=== PATIENT | male | born 1965 | race Caucasian/White ===

== ENCOUNTER 2017-05-01 18:40 | Emergency (ER) | payer MEDICAID ==
[2017-05-01 18:55] VITALS: BP 116/74; PULSE 74; RESP 20; TEMP 98.2; O2SAT 99
[2017-05-01] MEDS ORDERED: Lidocaine Hydrochloride 5 ML INJ ONE (19:34)
[2017-05-01] MEDS ORDERED: Bacitracin 500 Units/gm Oint Foilpak UD ONE (19:34)
--- NOTE | 2017-05-01 20:19 | C.PDOC ---
History Of Present Illness 51 year old male presents to the ED for evaluation after he sustained a laceration to his right 2nd finger from a work machine earlier today. Patient denies any blunt trauma or extremity numbness/weakness at this time. Time Seen by Provider: 05/01/17 19:22 Chief Complaint (Nursing): Abnormal Skin Integrity History Per: Patient History/Exam Limitations: no limitations Onset/Duration Of Symptoms: Hrs Current Symptoms Are (Timing): Still Present Location Of Injury: Right: Hand (2nd finger ) Additional History Per: Patient Past Medical History Reviewed: Historical Data, Nursing Documentation, Vital Signs Vital Signs: Last Vital Signs Temp 98.2 F 05/01/17 18:53 Pulse 74 05/01/17 18:53 Resp 20 05/01/17 18:53 BP 116/74 05/01/17 18:53 Pulse Ox 99 05/01/17 21:52 - Medical History PMH: Diabetes, Hypercholesterolemia Surgical History: Appendectomy Family History: States: Diabetes - Social History Hx Tobacco Use: No Hx Alcohol Use: No Hx Substance Use: No - Immunization History Hx Tetanus Toxoid Vaccination: No (unknown) Hx Influenza Vaccination: No (unknown) Hx Pneumococcal Vaccination: No (unknown) Review Of Systems Skin: Positive for: Other (laceration to right second finger. no blunt trauma ) Neurological: Negative for: Weakness, Numbness Physical Exam - Physical Exam Appears: Non-toxic, No Acute Distress Skin: Normal Color, Warm, Dry, Other (1.5cm laceration to right second finger. no active bleeding, no foreign body visualized) Extremity: Normal ROM, Capillary Refill (less than 2 seconds ) Neurological/Psych: Normal Speech, Normal Cognition, Normal Motor, Normal Sensation ED Course And Treatment O2 Sat by Pulse Oximetry: 99 (on RA ) Pulse Ox Interpretation: Normal Progress Note: 1.5cm linear laceration to right second finger. Local anesthesia achieved with lidocaine without epinephrine. Wound irrigated with NS and explored. No FB seen. No tendon injury. Five 4-0 Nylon sutures placed. Pt tolerated well with minimal bleeding. Tetanus IM administered. On reassessment, patient is resting comfortably, showing no signs of distress, and is stable for discharge. Patient is advised to follow up with his PMD within 1-2 days for further evaluation. Laceration - Laceration Repair Right 2nd finger Wound Length (In cm): 1.5 Description Of Wound: Linear Anesthesia: Lidocaine 1% (local, to base of right 2nd finger ) Wound Examination: Irrigated With Saline, No FB With Wound Exploration, No Tendon Injury With Wound Exploration Wound Closure: Suture (five ) Suture Technique And Material Used: Nylon (4-0) Wound Complexity: Simple Disposition Counseled Patient/Family Regarding: Diagnosis, Need For Followup, Rx Given - Disposition Referrals: [facility] [Outside] Disposition: HOME/ ROUTINE Disposition Time: 20:17 Condition: STABLE Additional Instructions: Please follow up in clinic in 10 days for suture removal Keep wound clean and dry Apply antibiotic cream Return to ER if worse Instructions: Finger Laceration (ED) Forms: [employer] (Citizen Of [place]) Print Language: CZECH - Clinical Impression Clinical Impression: Laceration of finger of right hand - 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 - Scribe Statement The provider has reviewed the documentation as recorded by the Scribe (Wendy Walton) All medical record entries made by the Scribe were at my direction and personally dictated by me. I have reviewed the chart and agree that the record accurately reflects my personal performance of the history, physical exam, medical decision making, and the department course for this patient. I have also personally directed, reviewed, and agree with the discharge instructions and disposition.
== END 2017-05-01 20:35 | disposition home or self-care (01) ==
LOC: C.ER 18:40
DX: S61.210A Laceration without foreign body of right index finger without damage to nail, initial encounter (principal); W31.9XXA Contact with unspecified machinery, initial encounter; Y92.89 Other specified places as the place of occurrence of the external cause

== ENCOUNTER 2017-07-05 17:56 | Emergency (ER) | payer MEDICAID ==
[2017-07-05 18:11] VITALS: BMI 34.7
[2017-07-05 19:02] VITALS: BP 117/68; PULSE 71; RESP 20; TEMP 97.7; O2SAT 97
--- NOTE | 2017-07-05 19:19 | C.PDOC ---
History Of Present Illness 52 yr old male presents to the ER with complaints of left shoulder pain radiating down the left arm for the past 1 week. Patient states he was seen before in the clinic and had outpatient XRay done but is unsure of the results. Patient denies heavy lifting, trauma, chest pain, SOB, neck pain, weakness or numbness. Time Seen by Provider: 07/05/17 18:24 Chief Complaint (Nursing): Back Pain History Per: Patient History/Exam Limitations: no limitations Onset/Duration Of Symptoms: Days (1 week) Past Medical History Reviewed: Historical Data, Nursing Documentation, Vital Signs Vital Signs: Last Vital Signs Temp 97.7 F 07/05/17 19:02 Pulse 71 07/05/17 19:02 Resp 20 07/05/17 19:02 BP 117/68 07/05/17 19:02 Pulse Ox 97 07/05/17 19:35 - Medical History PMH: Diabetes, HTN, Hypercholesterolemia Surgical History: Appendectomy Family History: States: Diabetes - Social History Hx Tobacco Use: No Hx Alcohol Use: No Hx Substance Use: No - Immunization History Hx Tetanus Toxoid Vaccination: No (unknown) Hx Influenza Vaccination: No (unknown) Hx Pneumococcal Vaccination: No (unknown) Review Of Systems Except As Marked, All Systems Reviewed And Found Negative. Cardiovascular: Negative for: Chest Pain Respiratory: Negative for: Shortness of Breath Musculoskeletal: Positive for: Shoulder Pain (Left shoulder pain), Arm Pain ( Radiating pain down the left arm). Negative for: Neck Pain Neurological: Negative for: Weakness, Numbness Physical Exam - Physical Exam Appears: Non-toxic, No Acute Distress Skin: Warm, Dry, No Rash Head: Atraumatic, Normacephalic Neck: Paracervical Tenderness (Left), Supple, Other ((+) Tenderness to the left parathoracic spine) Chest: Symmetrical, No Tenderness Cardiovascular: Rhythm Regular, No Murmur Respiratory: Normal Breath Sounds, No Rales, No Rhonchi, No Stridor, No Wheezing Extremity: Normal ROM, Capillary Refill (<2 secs), No Swelling Neurological/Psych: Oriented x3, Normal Speech, Normal Motor, Normal Sensation ED Course And Treatment ECG: Interpreted By Me, Viewed By Me ECG Rhythm: Sinus Rhythm Rate From EC (BPM) O2 Sat by Pulse Oximetry: 97 (RA) Pulse Ox Interpretation: Normal Medical Decision Making Medical Decision Making: PLAN: * EKG * Valium PO * Toradol IM Old records reviewed, the patient had outpatient xrays which showed arthrosis. On re-exam, the patient reports improvement of symptoms. Abdomen is soft, non- tender and tolerating PO well. Lungs are CTA, heart is RRR, ambulatory in the ED with steady gait. Follow up with the medical doctor within 1-2 days. Return if worsened. Disposition - Disposition Referrals: [facility] [Outside] Disposition: HOME/ ROUTINE Disposition Time: 19:17 Condition: GOOD Additional Instructions: Follow up with the medical doctor within 1-2 days. Return if worsened. Prescriptions: Cyclobenzaprine [Cyclobenzaprine HCl] 10 mg PO BID #14 tab Naproxen [Naprosyn] 500 mg PO BID #20 tab Instructions: Cervical Radiculopathy (ED), Arthritis (ED) Forms: [employer] (Zambian) Print Language: PERSIAN - Clinical Impression Clinical Impression: Arthrosis, Cervical radiculopathy - PA / ROPE TIER / Resident Statement MD/DO has reviewed & agrees with the documentation as recorded. - Scribe Statement The provider has reviewed the documentation as recorded by the Scribe Shruthi Wu All medical record entries made by the Carmeloibchel were at my direction and personally dictated by me. I have reviewed the chart and agree that the record accurately reflects my personal performance of the history, physical exam, medical decision making, and the department course for this patient. I have also personally directed, reviewed, and agree with the discharge instructions and disposition.
== END 2017-07-05 19:44 | disposition home or self-care (01) ==
LOC: C.ER 17:56
DX: M54.12 Radiculopathy, cervical region (principal); M19.90 Unspecified osteoarthritis, unspecified site; E11.9 Type 2 diabetes mellitus without complications; E78.00 Pure hypercholesterolemia, unspecified; I10 Essential (primary) hypertension
CPT/HCPCS: 96372; 99284; J1885

== ENCOUNTER 2017-07-09 19:14 | Emergency (ER) | payer MEDICAID ==
[2017-07-09 19:14] VITALS: BMI 34.7
--- NOTE | 2017-07-09 20:11 | C.PDOC ---
History Of Present Illness 52 yr old male w/PMHx of NIDDM presents to the ER for re-evaluation of left shoulder pain for past few weeks radiating down the left arm. Patient describes pain as aching, tight at times, worse with left arm movement. Patient states, was seen before in the clinic and ED on 07/05/17, when had outpatient XRay done , received medication without improvement in pain. Otherwise, pt known trauma or injury, fever, chills, headache, dizziness, neck pain, chest pain, SOB, dyspnea, diaphoresis, palpitation, abd. pain, N/V/D, denies weakness or numbness to Left arm. Ambulate to Ed for evaluation, not in any apparent distress.. Time Seen by Provider: 07/09/17 19:52 Chief Complaint (Nursing): Upper Extremity Problem/Injury History Per: Patient History/Exam Limitations: no limitations Onset/Duration Of Symptoms: Days (past few weeks) Current Symptoms Are (Timing): Still Present Past Medical History Reviewed: Historical Data, Nursing Documentation, Vital Signs Vital Signs: Last Vital Signs Temp 97.8 F 07/09/17 20:22 Pulse 68 07/09/17 20:22 Resp 18 07/09/17 20:22 BP 122/76 07/09/17 20:22 Pulse Ox 97 07/09/17 20:25 - Medical History PMH: Diabetes, HTN, Hypercholesterolemia Surgical History: Appendectomy Family History: States: Diabetes - Social History Hx Tobacco Use: No Hx Alcohol Use: No Hx Substance Use: No - Immunization History Hx Tetanus Toxoid Vaccination: No (unknown) Hx Influenza Vaccination: No (unknown) Hx Pneumococcal Vaccination: No (unknown) Review Of Systems Except As Marked, All Systems Reviewed And Found Negative. Constitutional: Negative for: Fever, Chills Cardiovascular: Negative for: Chest Pain, Palpitations Respiratory: Negative for: Shortness of Breath Gastrointestinal: Negative for: Nausea, Vomiting, Abdominal Pain, Diarrhea Musculoskeletal: Positive for: Shoulder Pain (left shoulder), Arm Pain ( radiating pain down the left arm). Negative for: Neck Pain Neurological: Negative for: Weakness, Numbness, Headache, Dizziness Physical Exam - Physical Exam Appears: Well, Non-toxic, No Acute Distress Skin: Normal Color, Warm, Dry, No Rash Head: Normacephalic Eye(s): bilateral: PERRL Nose: No Discharge Oral Mucosa: Moist Throat: No Erythema Neck: Trachea Midline, No Midline Cervical Tenderness, No Paracervical Tenderness, No Step Off Deformity, Supple Chest: Symmetrical, No Deformity Cardiovascular: Rhythm Regular, No Murmur, No JVD Respiratory: No Decreased Breath Sounds, No Accessory Muscle Use, No Stridor, No Wheezing Gastrointestinal/Abdominal: No Soft, No Tenderness, No Distention, No Guarding Back: No CVA Tenderness Extremity: Normal ROM (Left shoulder with mild discomfort to abduction), Tenderness (over superior aspect Left shoulder. No skin changes, no defomrity, no neurovascular deficits.), Capillary Refill (less than 2sec to left hand), No Deformity, No Swelling Neurological/Psych: Oriented x3, Normal Speech, Normal Motor, Normal Sensation, Normal Reflexes ED Course And Treatment ECG: Interpreted By Me, Viewed By Me (and ED attending) ECG Rhythm: Sinus Rhythm Interpretation Of ECG: SR@64/min, LAD, T wave inversion in III, no acute ST-T changes. Compare to study from 07/05/17 and appears unchanged. O2 Sat by Pulse Oximetry: 97 (RA) Pulse Ox Interpretation: Normal - Other Rad C-SPine from 06/26/17 X-Ray: Read By Radiologist Interpretation: PROCEDURE: Cervical Spine Radiographs. HISTORY: Pain. COMPARISON: None. FINDINGS: BONES: Alignment maintained. No fracture. Dens Intact. Anterior spondylosis and blending anterior longitudinal ligamentous ossification C4-5 and C6-7 levels. DISC SPACES: Normal. SOFT TISSUES: Normal. No prevertebral soft tissue swelling. OTHER FINDINGS: C3-4 and C4-5 bilateral apophyseal chip joint mild hypertrophic arthrosis. Minimal encroachment on the right C4-5 foramen. IMPRESSION: Cervical spondylosis. X-Ray - Left Shoulder X-Ray: Interpreted by Me, Viewed By Me Progress Note: On re-evaluation, pt is AAO#3, not in any apparent distress. Afebrile, hemodynamicaly stable. non-toxic. PulseOx. NEck: SUpple, (-) midline tenderness, (-) JVD, (-) carotid bruits B/L. Lungs: CTA B/L, BS equal B /L. CVS: (+)S1S2, reg. Abd: benign. LLU: exam c/w left shoulder tendonitis r/ o cervical radiculopathy. C-Spine results review from 06/26/17. Accucheck 180. EKG- unchanged from 07/05/17. Shoulder xray offered- pt refused. Pt advised. ref. to f/u with PMD, Ortho in 2-3 days for re-eavl. return to ED if any worsening or new changes. Medical Decision Making Medical Decision Making: PLAN: * X-Ray - Left Shoulder * EKG Disposition Counseled Patient/Family Regarding: Studies Performed, Diagnosis, Need For Followup, Rx Given - Disposition Referrals: Catrina Linder MD [Staff Provider] - [facility] [Outside] Barbara Tuttle MD [Staff Provider] - Disposition: HOME/ ROUTINE Disposition Time: 20:34 Condition: STABLE Additional Instructions: REST TO LEFT ARM, SLING FOR 1-2 WEEKS TAKE MEDICATION PRESCRIBED FOLLOW UP WITH PMD, ORTHOPEDIST IN2-3 DAYS FOR RE-EVALUATION. RETURN TO ED IF ANY WORSENING OR NEW CHANGES. Prescriptions: Prednisone [Deltasone] 40 mg PO DAILY #6 tablet traMADol [Ultram] 50 mg PO TID #7 tab Instructions: Cervical Radiculopathy (ED), Rotator Cuff Tendinitis (ED) Forms: [employer] (Bengali) Print Language: MAURITIAN - Clinical Impression Clinical Impression: Cervical radiculopathy, Shoulder tendonitis
[2017-07-09 20:24] VITALS: BP 122/76; PULSE 68; RESP 18; TEMP 97.8; O2SAT 97
--- NOTE | 2017-07-11 13:02 | CARD ---
APPROVED REPORT EKG Measurement Heart [id number] MD [id number] <Conclusion> Normal sinus rhythm Left anterior fascicular block Nonspecific T wave changes Abnormal ECG
== END 2017-07-09 20:46 | disposition home or self-care (01) ==
LOC: C.ER 19:14
DX: M54.12 Radiculopathy, cervical region (principal); M75.92 Shoulder lesion, unspecified, left shoulder; E11.9 Type 2 diabetes mellitus without complications; E78.00 Pure hypercholesterolemia, unspecified; I10 Essential (primary) hypertension

== ENCOUNTER 2017-07-27 14:30 | Emergency (ER) | payer MEDICAID ==
[2017-07-27 14:31] VITALS: BMI 34.7
[2017-07-27 14:54] VITALS: BP 123/76; RESP 18; TEMP 98.4; O2SAT 99
[2017-07-27 14:55] VITALS: PULSE 77
--- NOTE | 2017-07-27 16:12 | C.PDOC ---
History Of Present Illness 52 y/o male presents to the ER complaining of tenderness to the left trapezius radiating down to the left arm for the past 7 days. Patient also has left arm pain and left arm parasthesia. Of note, patient works in construction lifting heavy bags all day. Time Seen by Provider: 07/27/17 16:02 Chief Complaint (Nursing): Upper Extremity Problem/Injury History Per: Patient History/Exam Limitations: no limitations Onset/Duration Of Symptoms: Days Current Symptoms Are (Timing): Still Present Severity: Moderate Past Medical History Reviewed: Historical Data, Nursing Documentation, Vital Signs Vital Signs: Last Vital Signs Temp 98.4 F 07/27/17 14:53 Pulse 77 07/27/17 14:53 Resp 18 07/27/17 14:53 BP 123/76 07/27/17 14:53 Pulse Ox 99 07/27/17 19:24 - Medical History PMH: Diabetes, HTN, Hypercholesterolemia Surgical History: Appendectomy Family History: States: Diabetes - Social History Hx Tobacco Use: No Hx Alcohol Use: No Hx Substance Use: No - Immunization History Hx Tetanus Toxoid Vaccination: No (unknown) Hx Influenza Vaccination: No (unknown) Hx Pneumococcal Vaccination: No (unknown) Review Of Systems Except As Marked, All Systems Reviewed And Found Negative. Musculoskeletal: Positive for: Arm Pain (left arm pain) Physical Exam - Physical Exam Appears: Non-toxic, No Acute Distress Skin: Normal Color, Warm, No Rash Head: Atraumatic, Normacephalic Eye(s): bilateral: Normal Inspection, PERRL Nose: Normal Oral Mucosa: Moist Neck: Normal ROM (w/o pain), No Midline Cervical Tenderness, Supple Chest: Symmetrical Cardiovascular: Rhythm Regular Respiratory: Normal Breath Sounds, No Accessory Muscle Use Back: Other (tenderness in left trapezius) Extremity: Normal ROM, No Tenderness, No Swelling Neurological/Psych: Oriented x3, Normal Speech, Normal Cognition, Normal Motor, Normal Sensation ED Course And Treatment O2 Sat by Pulse Oximetry: 99 (RA) Pulse Ox Interpretation: Normal Progress Note: Patient given Motrin. 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 Disposition Doctor Will See Patient In The: Office Counseled Patient/Family Regarding: Studies Performed, Diagnosis - Disposition Referrals: [facility] [Outside] [facility] [Outside] Disposition: HOME/ ROUTINE Disposition Time: 16:12 Condition: GOOD Additional Instructions: bolsa de hielo 1/2 hora por hora, nada caliente Ibuprofeno 400-600 mg cada 6 horas robert necessario Levanta cosas usando las piernas en lugar de los hombros. Sigue en la [facility] (gratis) robert necessario Prescriptions: Ibuprofen [Motrin Tab] 600 mg PO Q6H #20 tab Instructions: Muscle Spasm (ED) Forms: [employer] (Czech) Print Language: SINHALA - Clinical Impression Clinical Impression: Trapezius muscle spasm - Scribe Statement The provider has reviewed the documentation as recorded by the Scribe Terry Hernandez Provider Attestation: All medical record entries made by the Scribe were at my direction and personally dictated by me. I have reviewed the chart and agree that the record accurately reflects my personal performance of the history, physical exam, medical decision making, and the department course for this patient. I have also personally directed, reviewed, and agree with the discharge instructions and disposition.
== END 2017-07-27 16:25 | disposition home or self-care (01) ==
LOC: C.ER 14:30
DX: M62.838 Other muscle spasm (principal)

== ENCOUNTER 2017-12-07 13:31 | Emergency (ER) | payer MEDICAID ==
[2017-12-07 13:32] VITALS: BMI 38.4
[2017-12-07 13:39] VITALS: RESP 18
[2017-12-07 14:32] LABS: BASO # 0.1 K/uL (0.0-0.2); BASO % 0.8 % (0.0-2.0); EOS # 0.1 K/uL (0.0-0.7); HEMOGLOBIN 13.9 g/dL (12.0-18.0); LYMPH # 2.8 K/uL (1.0-4.3); LYMPH % 23.2 % (20.0-40.0); MEAN CELL VOLUME 86.6 fL (80.0-94.0); MEAN CORPUSCULAR HEMOGLOBIN 29.5 pg (27.0-31.0); MEAN CORPUSCULAR HGB CONC 34.1 g/dL (33.0-37.0); MEAN PLATELET VOLUME 8.1 fL (7.2-11.7); MONO # 0.7 K/uL (0.0-0.8); MONO % 5.8 % (0.0-10.0); NEUT # 8.4 K/uL (1.8-7.0); NEUT % 69.2 % (50.0-75.0); RBC 4.72 Mil/uL (4.40-5.90); RED CELL DISTRIBUTION WIDTH 13.1 % (11.5-14.5); WHITE BLOOD COUNT 12.2 K/uL (4.8-10.8)
[2017-12-07 14:36] LABS: SQUAMOUS EPITHIAL < 1 /hpf (0-5); URINE BACTERIA RARE (<OCC); URINE BILIRUBIN NEGATIVE (NEGATIVE); URINE BLOOD NEGATIVE (NEGATIVE); URINE CLARITY Clear (Clear); URINE COLOR Yellow (YELLOW); URINE GLUCOSE (UA) NORMAL (Normal); URINE LEUKOCYTE ESTERASE NEG Leu/uL (Negative); URINE PROTEIN NEGATIVE (NEGATIVE); URINE UROBILINOGEN NORMAL mg/dL (0.2-1.0)
[2017-12-07 14:46] LABS: ALB/GLOB RATIO 1.2 (1.0-2.1); ALBUMIN 4.2 g/dL (3.5-5.0); ALT/SGPT 49 U/L (21-72); AST/SGOT 28 U/L (17-59); BLOOD UREA NITROGEN 22 mg/dL (9-20); CALCIUM 9.3 mg/dl (8.6-10.4); GFR AFRICAN-AMERICAN > 60; GFR NON-AFRICAN AMERICAN > 60
--- NOTE | 2017-12-07 15:11 | C.PDOC ---
History Of Present Illness 52 y/o male presents to the ER complaining of left medial scapular pain which has been present for the past 1 week. Patient states that the pain is digitally and positionally reproducible. Patient reports that the pain is worse with deep inspiration. He notes that he has a history of diabetes and he is taking Metformin 2x a day. However, he does not check his fingersticks so he is not sure if his sugar levels are normal. Time Seen by Provider: 12/07/17 13:56 Chief Complaint (Nursing): Chest Pain History Per: Patient History/Exam Limitations: no limitations Onset/Duration Of Symptoms: Days Current Symptoms Are (Timing): Still Present Severity: Moderate Past Medical History Reviewed: Historical Data, Nursing Documentation, Vital Signs Vital Signs: Last Vital Signs Temp 98.2 F 12/07/17 13:36 Pulse 84 12/07/17 13:36 Resp 18 12/07/17 13:36 BP 112/73 12/07/17 13:36 Pulse Ox 100 12/07/17 15:11 - Medical History PMH: Diabetes, HTN, Hypercholesterolemia Surgical History: Appendectomy Family History: States: Diabetes - Social History Hx Tobacco Use: No Hx Alcohol Use: No Hx Substance Use: No - Immunization History Hx Tetanus Toxoid Vaccination: No (unknown) Hx Influenza Vaccination: No (unknown) Hx Pneumococcal Vaccination: No (unknown) Review Of Systems Except As Marked, All Systems Reviewed And Found Negative. Constitutional: Negative for: Fever, Chills Musculoskeletal: Positive for: Other (left medial scapular pain) Physical Exam - Physical Exam Appears: Non-toxic, No Acute Distress, Other (obese) Skin: Normal Color, Warm, Dry Head: Atraumatic, Normacephalic Eye(s): bilateral: Normal Inspection Nose: Normal Oral Mucosa: Moist Neck: Supple Chest: Symmetrical Cardiovascular: Rhythm Regular Respiratory: Normal Breath Sounds, No Rales, No Rhonchi, No Wheezing Back: Paraspinal Tenderness (left sided paraspinal tenderness) Extremity: Normal ROM, Tenderness (left medial scapular tenderness) Neurological/Psych: Oriented x3, Normal Speech ED Course And Treatment - Laboratory Results Result Diagrams: 12/07/17 14:25 12/07/17 14:25 Lab Interpretation: Normal (trop neg, A1C pending) ECG: Interpreted By Me ECG Rhythm: Sinus Rhythm ECG Interpretation: Normal Rate From EC O2 Sat by Pulse Oximetry: 100 (RA) Pulse Ox Interpretation: Normal - Radiology CXR: Interpreted by Me CXR Interpretation: Yes: No Acute Disease Progress Note: motrin PO Reevaluation Time: 15:10 Reassessment Condition: Improved Medical Decision Making Medical Decision Making: L medial scapular muscle strain no pna/pnx normal glu no FS machine @ home- refilled Disposition Doctor Will See Patient In The: Office Counseled Patient/Family Regarding: Studies Performed, Diagnosis - Disposition Referrals: [facility] [Outside] [facility]Outside[facility] Disposition: HOME/ ROUTINE Disposition Time: 15:10 Condition: GOOD Additional Instructions: sigue en la [facility]IS checke barros azucar en la [place] y la noche ANTES del desayuno y ANTES de la herlinda. sigue Metformina 850 mg dos veces al jericho con comidas Prescriptions: Blood-Glucose Control, Normal [Meter-Check] 1 each MC BID #1 each Lancets/Blood Glucose Strips [Fora [id number] Strp-Lnct] 1 each MC BID #60 combo..pkg Instructions: Muscle Strain Forms: [address] (Citizen Of [place]) Print Language: PERSIAN - Clinical Impression Clinical Impression: Muscle strain of left scapular region, Medicine refill - Scribe Statement The provider has reviewed the documentation as recorded by the Scribe Terry Hernandez Provider Attestation: All medical record entries made by the Scribe were at my direction and personally dictated by me. I have reviewed the chart and agree that the record accurately reflects my personal performance of the history, physical exam, medical decision making, and the department course for this patient. I have also personally directed, reviewed, and agree with the discharge instructions and disposition.
[2017-12-07 15:20] VITALS: BP 116/74; PULSE 78; TEMP 98
[2017-12-07 15:23] VITALS: O2SAT 100
--- NOTE | 2017-12-07 17:25 | RAD ---
HISTORY: SOB COMPARISON: Chest radiographs 10/02/2015 prior TECHNIQUE: Chest PA and lateral FINDINGS: LUNGS: No active pulmonary disease. PLEURA: No significant pleural effusion identified. No pneumothorax apparent. CARDIOVASCULAR: Normal. OSSEOUS STRUCTURES: No significant abnormalities. VISUALIZED UPPER ABDOMEN: Normal. OTHER FINDINGS: None. IMPRESSION: No interval acute cardiopulmonary disease appreciated.
== END 2017-12-07 15:19 | disposition home or self-care (01) ==
LOC: C.ER 13:31
DX: Z76.0 Encounter for issue of repeat prescription (principal); S46.912A Strain of unspecified muscle, fascia and tendon at shoulder and upper arm level, left arm, initial encounter; X58.XXXA Exposure to other specified factors, initial encounter; Y92.9 Unspecified place or not applicable; I10 Essential (primary) hypertension; E11.9 Type 2 diabetes mellitus without complications; E78.00 Pure hypercholesterolemia, unspecified; Z79.84 Long term (current) use of oral hypoglycemic drugs